=== PATIENT | female | born 1945 | race Caucasian/White ===

== ENCOUNTER → 2020-07-24 | Outpatient (CLI) | payer OTHER ==
[~2020-07-24] MED LIST: ALBUTEROL2.5 MG/3 M INH; BREO ELLIPTA 11 EACH INH; BUSPIRONE HCL15 MG PO; CARBIDOPA-LEVO1 EA14 PO; CLARITIN10 M2 PO; FLUOXETINE HCL10 M1 PO; FUROSEMIDE40 MG PO; HYDROCODONE-AC1 EAC1 PO; LEVOTHYROXINE25 MC1 PO; MONTELUKAST SOD10 MG PO; NITROSTAT 0.40.4 MG SL; OMEPRAZOLE40 MG PO; PROAIR DIGIHAL90 MCG INH; ROPINIROLE HCL0.5 MG PO; ST. JOSEPH ASPI81 M1 PO; TIZANIDINE HCL2 MG PO; ZOCOR20 MG PO
== END ==
LOC: HEART 5 13:28
DX: G30.9 Alzheimer's disease, unspecified (principal); M19.90 Unspecified osteoarthritis, unspecified site; J44.9 Chronic obstructive pulmonary disease, unspecified; R05 Cough; R06.2 Wheezing
CPT/HCPCS: 94010; 94729

== ENCOUNTER 2020-08-03 06:09 | Day surgery (SDC) | payer OTHER ==
[~2020-08-03] VITALS: Ht 157.5 cm; Wt 49.0 kg
[2020-08-03] MEDS ORDERED: ALBUTEROL2.5 MG/3 M INH (08:18)
[2020-08-03] MEDS ORDERED: PROAIR DIGIHAL90 MCG INH (08:18)
[2020-08-03] MEDS ORDERED: ST. JOSEPH ASPI81 M1 PO (08:19)
[2020-08-03] MEDS ORDERED: BUSPIRONE HCL15 MG PO (08:19)
[2020-08-03] MEDS ORDERED: BREO ELLIPTA 11 EACH INH (08:19)
[2020-08-03] MEDS ORDERED: CARBIDOPA-LEVO1 EA14 PO (08:20)
[2020-08-03] MEDS ORDERED: FUROSEMIDE40 MG PO (08:20)
[2020-08-03] MEDS ORDERED: FLUOXETINE HCL10 M1 PO (08:20)
[2020-08-03] MEDS ORDERED: HYDROCODONE-AC1 EAC1 PO (08:21)
[2020-08-03] MEDS ORDERED: LEVOTHYROXINE25 MC1 PO (08:21)
[2020-08-03] MEDS ORDERED: CLARITIN10 M2 PO (08:22)
[2020-08-03] MEDS ORDERED: MONTELUKAST SOD10 MG PO (08:22)
[2020-08-03] MEDS ORDERED: NITROSTAT 0.40.4 MG SL (08:23)
[2020-08-03] MEDS ORDERED: OMEPRAZOLE40 MG PO ×2 (08:23)
[2020-08-03] MEDS ORDERED: ZOCOR20 MG PO (08:24)
[2020-08-03] MEDS ORDERED: TIZANIDINE HCL2 MG PO (08:24)
[2020-08-03] MEDS ORDERED: ROPINIROLE HCL0.5 MG PO (08:24)
[2020-08-03 12:18] LABS: HEMOGLOBIN 9.6 gm/dl (12.3-15.3); RED BLOOD COUNT 3.14 M/UL (4.00-5.10); WHITE BLOOD COUNT 6.7 K/UL (4.5-11.0)
[2020-08-03 12:37] LABS: BUN/CREATININE RATIO 14 (0-10)
== END 2020-08-03 14:32 | disposition home or self-care (01) ==
LOC: OR 06:09 → MED SURG 4 10:01 → OR 14:32
PROVIDERS: Physician Assistant
DX: D02.21 Carcinoma in situ of right bronchus and lung (principal); I25.10 Atherosclerotic heart disease of native coronary artery without angina pectoris; E78.5 Hyperlipidemia, unspecified; K27.9 Peptic ulcer, site unspecified, unspecified as acute or chronic, without hemorrhage or perforation; D64.9 Anemia, unspecified; E03.9 Hypothyroidism, unspecified; K21.9 Gastro-esophageal reflux disease without esophagitis; G30.9 Alzheimer's disease, unspecified; J44.9 Chronic obstructive pulmonary disease, unspecified; M19.90 Unspecified osteoarthritis, unspecified site; I25.2 Old myocardial infarction; F17.210 Nicotine dependence, cigarettes, uncomplicated; Z88.8 Allergy status to other drugs, medicaments and biological substances; Z79.82 Long term (current) use of aspirin; Z79.899 Other long term (current) drug therapy; Z83.3 Family history of diabetes mellitus; Z82.49 Family history of ischemic heart disease and other diseases of the circulatory system; Z82.5 Family history of asthma and other chronic lower respiratory diseases; Z20.822 Contact with and (suspected) exposure to COVID-19; Z88.2 Allergy status to sulfonamides
CPT/HCPCS: 36415; 80048; 85025; 87635; 94640; J2704; J3010; J7120